=== PATIENT | male | born 1985 | race African-American/Black ===

== ENCOUNTER 2023-05-28 14:46 | Emergency (ER) | payer OTHER, SELFPAY ==
[2023-05-28 14:49] VITALS: BP 140/98; PULSE 92; RESP 16; TEMP 36.8; O2SAT 100
--- NOTE | 2023-05-28 14:52 | PC.NURSE ---
[facility] employee states to call [phone] when pt is finished with his visit and pt will get a ride back to the facility.
--- NOTE | 2023-05-28 16:02 | ED.DENTAL ---
HPI - Dental/Oral General Chief complaint: Dental/Oral Stated complaint: dental pain Time Seen by Provider: 05/28/23 15:01 History of Present Illness HPI Narrative: 37-year-old male presented ED for evaluation of dental pain. Patient does have history of dental caries but states that he was eating some popcorn and had acute worsening of his dental pain today. Pain started about 2 days ago but worsened after the popcorn. Patient denies any difficulty breathing or swallowing. Related Data Allergies Allergy/AdvReac Type Severity Reaction Status Date / Time No Known Allergies Allergy Verified 05/28/23 15:06 Review of Systems Review of Systems: All systems reviewed & are unremarkable except as noted in HPI and below Exam Narrative: APPEARANCE: Well appearing, no pain, no distress, well-nourished. HEAD: normocephalic, atraumatic. EYES: PERRLA/EOMI, conjunctivae clear. NOSE: Normal no drainage Mouth: Dental decay right lower jaw EARS:TMS clear with good light reflex. THROAT: Pharynx clear, no exudate. NECK: Supple. No adenopathy, no masses. RESPIRATORY: Airway patent, respirations nonlabored. Clear to auscultation bilaterally, no rales, rhonchi, wheezing. CARDIOVASCULAR: Regular rate and rhythm without murmurs rubs or gallops. ABDOMINAL: Soft, nontender, nondistended, normal bowel sounds MUSCULOSKELETAL: Moves all extremities. Strength/ROM intact, No edema, No calf tenderness. NEURO: Alert. Cranial nerves II through XII intact. Grossly intact Course Course Emergency Course: 37-year-old male presented ED for evaluation of abdominal pain. No abscess amenable to drainage. Patient was started on antibiotics and provided medications for pain control. Patient was encouraged to have close follow-up with a dentist. Vital Signs Vital signs: Vital Signs Temperature 98.2 F 05/28/23 14:49 Pulse Rate 92 05/28/23 14:49 Respiratory Rate 16 05/28/23 14:49 Blood Pressure 140/98 H 05/28/23 14:49 Pulse Oximetry 100 05/28/23 14:49 Oxygen Delivery Room Air 05/28/23 14:49 Temperature 98.2 F 05/28/23 14:49 Pulse Rate 92 05/28/23 14:49 Respiratory Rate 16 05/28/23 14:49 Blood Pressure 140/98 H 05/28/23 14:49 Pulse Oximetry 100 05/28/23 14:49 Oxygen Delivery Room Air 05/28/23 14:49 Discharge Plan Discharge Clinical Impression: Toothache, Dental caries Patient Disposition: Home, Self-Care Condition: Stable Instructions: Antibiotic Form, Toothache (ED) Additional Instructions: Antibiotic as directed until completed. Dental wax as needed to help with the exposed dental root. Tylenol and ibuprofen for pain control. Have close follow-up with your dentist. If you have any worsening symptoms then please call or return to the emergency department. Prescriptions: New amoxicillin-pot clavulanate 875-125 mg tablet 1 tablet PO Q12H Qty: 14 0RF Follow-up/Referrals: PHYSICIAN,ELECTRONIC DEVICE MONITOR [Primary Care Provider] - Stand Alone Forms: Work/School Release IP
[2023-05-28] MEDS: AMOXICILLIN/CLAVULANATE K 875-125 MG TAB 1 TABLET PO (16:04)
[2023-05-28] MEDS: HYDROcodone/acetaminophen (*CRX) 5-325 MG TABLET 1 TAB PO (16:06)
== END 2023-05-28 16:36 | disposition home or self-care (01) ==
PROVIDERS: Emergency Provider Emergency Medicine
DX: K02.9 Dental caries, unspecified (principal)
CPT/HCPCS: 99283; A9270

== ENCOUNTER 2023-08-31 07:27 | Emergency (ER) | payer OTHER, SELFPAY ==
--- NOTE | 2023-08-31 07:39 | ED.EXTPRO ---
HPI - Extremity Problem General Chief complaint: Unspecified Stated complaint: altered mental status Time Seen by Provider: 08/31/23 07:38 History of Present Illness HPI Narrative: 38-year-old male presenting to the emergency department from [facility] for evaluation of altered mental status. Patient is currently at [facility] for fentanyl abuse. Patient states he did use fentanyl and ecstasy this morning. Patient states he was not trying to harm or kill himself. Related Data Allergies Allergy/AdvReac Type Severity Reaction Status Date / Time No Known Allergies Allergy Verified 08/31/23 08:12 Review of Systems Review of Systems: All systems reviewed & are unremarkable except as noted in HPI and below Exam Narrative: APPEARANCE: Well appearing, no pain, no distress, well-nourished. HEAD: normocephalic, atraumatic. EYES: PERRLA/EOMI, conjunctivae clear. NOSE: Normal no drainage EARS:TMS clear with good light reflex. THROAT: Pharynx clear, no exudate. NECK: Supple. No adenopathy, no masses. RESPIRATORY: Airway patent, respirations nonlabored. Clear to auscultation bilaterally, no rales, rhonchi, wheezing. CARDIOVASCULAR: Regular rate and rhythm without murmurs rubs or gallops. ABDOMINAL: Soft, nontender, nondistended, normal bowel sounds MUSCULOSKELETAL: Moves all extremities. Strength/ROM intact, No edema, No calf tenderness. NEURO: Alert. Cranial nerves II through XII intact. Grossly intact SKIN: Warm, dry. Normal Color Course Course Emergency Course: Patient states he did take some fentanyl this morning. On re-evaluation patient is more alert appropriate. Patient is now stating that he did not take any fentanyl. On re-evaluation patient states he does feel improved, patient has no slurring in his speech. Patient now states he did not take any fentanyl this morning but patient does appear back at his baseline. Patient was able to ambulate without issue. Vital Signs Vital signs: Vital Signs Temperature 98.2 F 08/31/23 07:56 Pulse Rate 77 08/31/23 07:56 Respiratory Rate 22 H 08/31/23 07:56 Blood Pressure 149/112 H 08/31/23 07:56 Pulse Oximetry 100 08/31/23 07:56 Oxygen Delivery Room Air 08/31/23 07:56 Temperature 98.2 F 08/31/23 07:56 Pulse Rate 69 12/28/23 10:18 Respiratory Rate 13 08/31/23 10:18 Blood Pressure 141/100 H 08/31/23 10:18 Pulse Oximetry 98 08/31/23 10:18 Oxygen Delivery Room Air 08/31/23 07:56 MDM - Extremity (Nontraumatic) Differential Diagnosis Differential diagnosis: Likely other (Accidental ingestion, intestinal ingestion, altered mental status) Lab Data 08/31/23 08:11 08/31/23 08:11 Labs: Lab Results 08/31/23 08/31/23 Range/Units 08:11 09:04 WBC 7.5 (4.5-10.0) K/mm3 RBC 4.82 (4.6-6.20) M/mm3 Hgb 14.1 (14.0-18.0) g/dL Hct 42.8 (42.0-52.0) % MCV 88.8 (80-100) fl MCH 29.3 (26-34) pg MCHC 32.9 (32-36) g/dl RDW 12.9 (11.5-14.5) % Plt Count 313 (150-375) k/mm3 MPV 10.5 H (7.4-10.4) fl Immature Gran % (Auto) 0.3 (0-0.5) % Neut % (Auto) 65.9 (45.5-73.1) % Lymph % (Auto) 26.9 (18.3-44.2) % [place] % (Auto) 5.2 (2.6-8.5) % Eos % (Auto) 1.2 (0-4.4) % Baso % (Auto) 0.5 (0.2-1.2) % Lymph # (Auto) 2.01 (0.9-3.2) K/mm3 [place] # (Auto) 0.4 (0.1-0.6) K/mm3 Eos # (Auto) 0.1 (0-0.3) K/mm3 Baso # (Auto) 0.0 (0.0-0.1) K/mm3 Abs Immat Gran (auto) 0.02 (0.00-0.031) K/mm3 Absolute Neuts (auto) 4.9 (1.3-6.7) K/mm3 Absolute Nucleated RBC 0.0 (0.0-0.012) K/mm3 Nucleated RBC % 0.0 (0.0-0.2) % PT 13.7 (11.1-14.7) Seconds INR 1.0 APTT 26.8 (22.3-36.8) SECONDS Sodium 144 (137-145) mmol/L Potassium 3.6 (3.4-5.0) mmol/L Chloride 109 H (98-107) mmol/L Carbon Dioxide 26 (22-30) mmol/L Anion Gap 9 (8-16) mmol/L BUN 5 L (9-20) mg/dL Creatinine 1.20 (0.7-1.3) mg/dL Estim Creat Clear Calc 77 ml/min Annalisa
[2023-08-31 07:56] VITALS: BP 149/112; PULSE 77; RESP 22; TEMP 36.8; O2SAT 100
[2023-08-31 08:12] VITALS: BP 142/92; PULSE 72; RESP 15; O2SAT 100
[2023-08-31 08:18] LABS: Basophils Percent Auto 0.5 % (0.2-1.2); Eosinophils Absolute Auto 0.1 K/mm3 (0-0.3); Eosinophils Percent Auto 1.2 % (0-4.4); Hematocrit 42.8 % (42.0-52.0); Hemoglobin 14.1 g/dL (14.0-18.0); Immature Granulocyte Absolute 0.02 K/mm3 (0.00-0.031); Immature Granulocyte Percent A 0.3 % (0-0.5); Lymphocytes Absolute Auto 2.01 K/mm3 (0.9-3.2); Lymphocytes Percent Auto 26.9 % (18.3-44.2); Mean Corpuscular HGB Conc 32.9 g/dl (32-36); Mean Corpuscular Hemoglobin 29.3 pg (26-34); Mean Corpuscular Volume 88.8 fl (80-100); Mean Platelet Volume 10.5 fl (7.4-10.4); Monocytes Absolute Auto 0.4 K/mm3 (0.1-0.6); Monocytes Percent Auto 5.2 % (2.6-8.5); Neutrophils Absolute Auto 4.9 K/mm3 (1.3-6.7); Neutrophils Percent Auto 65.9 % (45.5-73.1); Platelet Count Result 313 k/mm3 (150-375); Red Blood Count 4.82 M/mm3 (4.6-6.20); Red Cell Distribution Width 12.9 % (11.5-14.5); White Blood Count 7.5 K/mm3 (4.5-10.0)
[2023-08-31 08:27] LABS: Prothrombin Time 13.7 Seconds (11.1-14.7)
[2023-08-31 08:28] LABS: Partial Thromboplastin Time 26.8 SECONDS (22.3-36.8)
[2023-08-31 08:30] LABS: Alanine Aminotransferase 20 U/L (6-50); Albumin Level 4.3 g/dL (3.5-5.1); Alkaline Phosphatase 45 U/L (38-126); Anion Gap 9 mmol/L (8-16); Aspartate Amino Transferase 23 U/L (17-59); Bilirubin,Total 0.3 mg/dL (0.2-1.3); Blood Urea Nitrogen 5 mg/dL (9-20); Calcium 9.5 mg/dL (8.4-10.2); Carbon Dioxide 26 mmol/L (22-30); Chloride 109 mmol/L (98-107); Estimated CRCL calculation 77 ml/min; Estimated Glomerular Filt Rate > 60; Glucose 114 mg/dL (65-110); Magnesium 2.4 mg/dL (1.6-2.3); Potassium 3.6 mmol/L (3.4-5.0); Sodium 144 mmol/L (137-145)
[2023-08-31 08:31] LABS: Lactic Acid Reflex 1.5 mmol/L (0.7-2.0)
[2023-08-31 08:32] LABS: Acetaminophen < 10 ug/mL (10-30); Ethanol < 10 mg/dL (<10); Salicylate < 1.0 mg/dL (2-20)
[2023-08-31 09:03] VITALS: BP 129/102; PULSE 74; RESP 14; O2SAT 100
[2023-08-31 09:11] LABS: Thyroid Stimulating Hormone Reflex 0.141 uIU/mL (0.465-4.68)
[2023-08-31 09:27] LABS: Amphetamine Screen Urine Negative (Negative); Barbiturate Screen Urine Negative (Negative); Benzodiazepines Screen Urine Negative (Negative); Cannabinoid Screen Urine Negative (Negative); Cocaine Screen Urine Negative (Negative); Methadone Screen Urine Negative (Negative); Opiate Screen Urine Negative (Negative); Phencyclidine Screen Urine Negative (Negative)
[2023-08-31 09:50] VITALS: BP 142/90; PULSE 74; RESP 15; O2SAT 98
[2023-08-31 10:18] VITALS: BP 141/100; PULSE 69; RESP 13; O2SAT 98
[2023-08-31 10:37] LABS: Free T4 Free Thyroxine Reflex 1.04 ng/dL (0.78-2.19)
--- NOTE | 2023-08-31 11:08 | PC.NURSE ---
called [facility] to inform staff, pt was being dc and needing a ride back. person on phone was pleasant and said they would be on their way. received call back from a Lady named Mickie, who was irritable and angry that she was not called. she was notified that pt was being dc and no medications were ordered.
[2023-08-31 11:55] LABS: Total Triiodothyronine (T3) 1.12 NG/ML (0.97-1.69)
== END 2023-08-31 11:21 ==
PROVIDERS: Emergency Provider Emergency Medicine
DX: R41.82 Altered mental status, unspecified (principal); F11.10 Opioid abuse, uncomplicated
CPT/HCPCS: 36415; 80053; 80307; 83605; 83735; 84439; 84443; 84480; 85025; 85610; 85730; 99283